=== PATIENT | female | born 1980 | race Caucasian/White ===

== ENCOUNTER 2018-06-08 04:53 | Emergency (ER) | payer OTHER ==
[~2018-06-08] VITALS: Ht 162.6 cm; Wt 72.6 kg
[2018-06-08] MEDS ORDERED: OLAN10 PO (06:12)
[2018-06-08] MEDS ORDERED: FAMO20 PO (06:14)
[2018-06-08] MEDS ORDERED: TRAZ50 PO (06:14)
[2018-06-08] MEDS ORDERED: Estradiol1 MG PO (06:14)
[2018-06-08] MEDS ORDERED: NICO2 PO (06:15)
[2018-06-08] MEDS ORDERED: Xanax2 MG PO (06:15)
[2018-06-08 08:01] LABS: Anion Gap 8 mmol/L (6-16); Blood Urea Nitrogen 15 mg/dL (8-24); CO2, Blood 26 mmol/L (21-32); Calcium, Blood 8.7 mg/dL (8.5-10.1); Chloride, Blood 108 mmol/L (98-108); Creatinine, Blood 0.75 mg/dL (0.40-1.00); Glomerular Filtration Rate >60 (60-); Glucose, Blood 95 mg/dL (70-99); Sodium, Blood 142 mmol/L (136-145)
[2018-06-08 08:07] LABS: Lithium 0.49 mmol/L (0.60-1.20)
== END 2018-06-08 08:42 | disposition home or self-care (01) ==
LOC: ER 04:53
PROVIDERS: Emergency Medicine
DX: F32.9 Major depressive disorder, single episode, unspecified (principal); Z79.899 Other long term (current) drug therapy
CPT/HCPCS: 80048; 80178; 99284; Q3014